=== PATIENT | female | born 1985 | race American Indian/Alaskan Native ===

== ENCOUNTER 2025-01-03 13:50 | Emergency (ER) | payer OTHER ==
[~2025-01-03] VITALS: Ht 177.8 cm; Wt 110.7 kg
[~2025-01-03 13:50] MED LIST: CARAFATE1 GM/10 ML PO; CLARITIN10 M1 PO; FOLIC ACID1 MG PO; LAMOTRIGINE200 MG PO; PEPCID20 MG PO; VIT C-BIOFLAVO1 EACH PO; VITAMIN D5000 UNIT PO; WELLBUTRIN XL300 MG PO
[2025-01-03 14:39] LABS: BASOPHILS 0.4 % (0.1-1.2); EOSINOPHILS 3.7 % (0.7-5.8); LYMPHOCYTES 26.7 % (19.3-51.7); MCH 14.5 PG (25.6-32.2); MCHC 25.4 g/dL (32.2-35.5); MCV 56.9 fL (79.4-94.8); MONOCYTES 6.9 % (4.7-12.5); NEUTROPHILS 61.4 % (34.0-71.1); RBC 4.15 M/uL (3.93-5.22)
[2025-01-03 15:03] LABS: SMEAR REVIEW BLOOD SEE COMMENTS
[2025-01-03 15:03] LABS: ALT (SGPT) 23.0 U/L (14-59); AST (SGOT) 16.0 U/L (15-37); GLOMERULAR FILTRATION RATE,EST 78.0 mL/min (>60); PROTEIN, TOTAL 7.4 g/dL (6.4-8.2); UREA NITROGEN 10.0 mg/dL (7-18)
[2025-01-03 15:26] LABS: ABO O; RH POSITIVE
[2025-01-03 15:37] LABS: ABO O; RH POSITIVE
[2025-01-03 15:38] LABS: ANTIBODY SCREEN NEGATIVE; IS CROSSMATCH COMPATIBLE
[2025-01-03] MEDS ORDERED: HYDROCODON-ACE1 EA10 PO (16:11)
[2025-01-03] MEDS ORDERED: OMEGA 3 FISH O1 EACH PO (16:11)
[2025-01-03] MEDS ORDERED: VITAMIN B-12250 MCG PO (16:12)
--- NOTE | 2025-01-03 18:28 | EKG ---
[facility] [address] [place], [place] [address] Signed Normal sinus rhythm Normal ECG No previous ECGs available Confirmed by Mick Borden DO ([id number]) on 01/03/2025 6:28:10 PM Electronically Signed By: MICK BORDEN DO 01/03/25 1828 PATIENT NAME: ANDREA MEJÍA Electrocardiogram DATE OF : 83 PHYSICIAN: MICK BORDEN DO REPORT #: [id number] REPORT IS CONFIDENTIAL AND NOT TO BE RELEASED WITHOUT AUTHORIZATION
[2025-01-03 20:20] VITALS: BP 123/67
== END 2025-01-03 20:24 | disposition home or self-care (01) ==
LOC: ED 13:50
PROVIDERS: Emergency Medicine
DX: D64.9 Anemia, unspecified (principal); R73.03 Prediabetes; F17.200 Nicotine dependence, unspecified, uncomplicated; Z79.899 Other long term (current) drug therapy
CPT/HCPCS: 36415; 36430; 80053; 85025; 85060; 86850; 86900; 86901; 86922; 93005; 93010; 99284-25; P9016